=== PATIENT | female | born 1935 | race Caucasian/White ===

== ENCOUNTER 2017-12-15 17:42 | Emergency (ER) | payer MEDICARE, OTHER ==
--- NOTE | 2017-12-15 17:55 | ED Physician Documentation ---
General Adult - HISTORIAN Historian: patient - HPI Chief Complaint: Eye Problems Additional Information: Patient started to have some redness to the right lateral eye. Did get some shampoo in her eye. No FB sensation. Has been having some soreness ot the eyeball. No itching, no drainage noted. She does not wear cataract. Vision seem to be normal. Had an eye exam done about 2 weeks ago and was told that she had the start of macular degeneration. Onset: days ago (yesterday) Timing: still present Severity: mild - ROS CONST: no problems. denies: fever, chills EYES/ENT: denies: problems with vision, nasal drainage, nasal congestion - PAST HX Past History: none, other (hypothyroidism) Other History: none Surgeries/Procedures: hysterectomy, other (AP bladder repair, cartarac) Allergies/Adverse Reactions: Allergies Allergy/AdvReac Type Severity Reaction Status Date / Time No Known Allergies Allergy Verified 12/15/17 17:58 Home Medications: Ambulatory Orders Medication Instructions Recorded Levothyroxine Sodium [Unithroid] 1 tab PO DAILY 12/15/17 - SOCIAL HX Smoking History: less than 1 pack/day Alcohol Use: none Drug Use: none - FAMILY HX Family History: No - REVIEWED ASSESSMENTS Nursing Assessment Reviewed: Yes Vitals Reviewed: Yes Progress - Progress Progress: Proparacaine 2 drops instilled in right eye, fluorescein exam done. No corneal abnl noted. Globe of eye nontender to touch. Eye was not different to palpation compared to left. No FB noted. General Adult Physical Exam - PHYSICAL EXAM GENERAL APPEARANCE: no distress EENT: ENT inspection normal, OMER (fundi benign, early cataract noted.), other ( EOM normal). No: eye inspection normal (mild injected conjuntival blood vessels to left lateral eye area. ) NECK: normal inspection, supple RESPIRATORY: no resp distress, chest non-tender, breath sounds normal. No: wheezes, rales, rhonchi CVS: reg rate & rhythm, heart sounds normal, equal pulses, no murmur, no gallop NEURO: mood/affect nml, cognition normal Discharge Clincal Impression: Conjunctival irritation Referrals: Primary Doctor,No [Primary Care Provider] - 2 Days Additional Instructions: Continue to use your eye lubricating drops as you have been instructed. If irritation continues after you are home to follow-up with your eye doctor. Return to the ED if you have any further problems, vision changes, increasing pain or discomfort to the eye or any other problems. Condition: Stable Disposition: 01 HOME, SELF-CARE Decision to Admit: NO Date of Decison to Admit: 12/15/17 Decision Time: 18:25
[2017-12-15 17:58] VITALS: BP 137/78
[2017-12-15] MEDS ORDERED: OPTH IRRIGATION SOLUTION 120 ML BTL OP ONE (18:04)
[2017-12-15] MEDS ORDERED: PROPARACAINE HCL 0.5% OPTH OP ONE (18:04)
== END 2017-12-15 18:40 | disposition home or self-care (01) ==
LOC: ED 17:42
DX: H57.8 Other specified disorders of eye and adnexa (principal)
CPT/HCPCS: 99283; A9270-GY